=== PATIENT | female | born 1965 | race African-American/Black ===

== ENCOUNTER 2017-12-23 10:19 | Emergency (ER) | payer OTHER ==
[2017-12-23 11:15] LABS: #Basophils 0.1 thou/uL (0.0-0.2); #Lymphocytes 1.6 thou/uL (1.20-3.40); #Monocytes 0.3 thou/uL (0.11-0.59); #Neutrophils 3.3 thou/uL (1.40-6.50); %Basophils 1.2 % (0.0-1.0); %Eosinophils 0.7 % (0.0-10.0); %Lymphocytes 29.6 % (21.0-51.0); %Monocytes 6.3 % (0.0-10.0); %Neutrophils 62.2 % (42.0-75.0); Hemoglobin 12.1 g/dL (12.0-16.0); Mean Corpuscular HGB CONC 31.6 g/dL (32.0-36.0); Mean Corpuscular Hemoglobin 24.4 pg (27.0-31.0); Mean Corpuscular Volume 77.3 fl (81.0-99.0); Mean Platelet Volume 7.8 fL (7.4-10.4); Platelet Count 233 thou/uL (130-400); RBC Distribution Width 15.6 % (11.5-14.5); Red Blood Cell (RBC) Count 4.97 mill/uL (4.20-5.40); White Blood Cell (WBC) Count 5.2 thou/uL (4.8-10.8)
[2017-12-23 11:22] LABS: PTT 24.6 SEC (22.9-36.1); Prothrombin Time 12.8 SEC (12.0-14.7)
[2017-12-23 11:34] LABS: ALT (SGPT) 15 U/L (8-55); AST (SGOT) 15 U/L (5-34); Albumin 4.1 g/dL (3.5-5.0); Alkaline Phosphatase 77 U/L (40-150); Anion Gap 16 mmol/L (10-20); BUN (Urea Nitrogen) 16 mg/dL (9.8-20.1); Bilirubin, Total 0.3 mg/dL (0.2-1.2); CK (CPK) 111 U/L (29-168); Calc. Creatinine Clearance 0 mL/min (70-130); Calcium 9.4 mg/dL (7.8-10.44); Carbon Dioxide 26 mmol/L (22-29); Chloride 101 mmol/L (98-107); Estimated GFR-MDRD 66; Globulin 3.4 g/dL (2.4-3.5); Glucose 346 mg/dL (70-105); Magnesium 1.7 mg/dL (1.6-2.6); Protein, Total 7.5 g/dL (6.0-8.3); Sodium 139 mmol/L (136-145)
[2017-12-23 11:36] LABS: CKMB 1.2 ng/mL (0-6.6); Troponin I Less than 0.010 ng/mL (< 0.028)
[2017-12-23 11:38] LABS: Bilirubin Negative (Negative); Blood, Urine Negative (Negative); Glucose, Urine (Dipstick) >=1000 mg/dL (Negative); Leukocyte Negative (Negative); Nitrite Negative (Negative); Protein, Urine (Dipstick) Negative (Neg-Trace); Specific Gravity, Urine 1.025 (1.005-1.030); Urobilinogen 0.2 mg/dL (0.2-1.0); pH, Urine 5.5 (5.0-9.0)
[2017-12-23 11:39] LABS: Clarity Cloudy (Clear)
[2017-12-23 11:45] LABS: Bacteria/HPF Rare-Few HPF (None Seen); RBC/HPF None Seen HPF (0-3); WBC/HPF 0-3 HPF (0-3)
[2017-12-23] MEDS ORDERED: Aspirin 325 MG TAB ONE (12:03)
[2017-12-23] MEDS ORDERED: Lorazepam 2 MG/ML VIAL ONE (12:03)
[2017-12-23] MEDS ORDERED: Labetalol HCl 100 MG/20 ML VIAL ONE (12:03)
--- NOTE | 2017-12-23 12:07 | CT ---
NONCONTRAST CT HEAD: Date: 12-23-17 History: Difficulty speaking for one hour. Neurologic deficit, left face and left upper extremity. FINDINGS: There is a wedge shaped low density area seen within the anterior aspect of the inferior left frontal lobe which may represent an area of acute infarction. There is no evidence of an intraparenchymal or extraaxial hemorrhage. No mass effect or midline shift is seen. There are scattered low density area s in the periventricular white matter which are nonspecific but likely related to mild chronic small vessel ischemic changes. Visualized paranasal sinuses and mastoid air cells are clear. Calvarial structures are intact. IMPRESSION: 1. Low density area inferior left frontal lobe likely related to an area of acute infarction. 2. Mild chronic small vessel ischemic changes. 3. Above findings discussed with Dr. Rosario in the Emergency Department 12-23-17 at 1149 hours. POS: [facility]
--- NOTE | 2017-12-23 12:24 | RAD ---
PORTABLE CHEST: History: Chest pain. FINDINGS: Heart size and mediastinum within normal limits. There is slight elevation of the left hemidiaphragm. The lungs are clear of any infiltrative process. Film technique is suboptimal. It may be related to body habitus. IMPRESSION: No active intrathoracic disease. POS: [facility]
== END 2017-12-23 12:30 | disposition short-term general hospital (02) ==
LOC: MADERS 10:19
DX: G45.9 Transient cerebral ischemic attack, unspecified (principal); E10.65 Type 1 diabetes mellitus with hyperglycemia; I10 Essential (primary) hypertension; E66.9 Obesity, unspecified
CPT/HCPCS: 36415; 36416; 70450; 71045; 80053; 81001; 82550; 82553; 83735; 83880; 84484; 85025; 85610; 85730; 87086; 93005; 94760; 96374; 96375; J2060